=== PATIENT | male | born 1935 | race Caucasian/White ===

== ENCOUNTER 2017-04-03 13:11 | Emergency (ER) | payer MEDICARE ==
[~2017-04-03] VITALS: Ht 177.8 cm; Wt 89.0 kg
[~2017-04-03 13:11] MED LIST: AMOXICILLIN500 MG PO; ASPIRIN LOW DOS81 M2 PO; CENTRUM SILVER PO; CHILD ASA81 MG OR; CIPROFLOXACN500 MG PO; DARVOCET-N 100100 MG OR; DILANTIN100 MG OR; DILANTIN100 MG PO; LORTAB 5 OR; PHENOBARB64.8 MG OR; PHENOBARB64.8 MG PO; PHENYTOIN EX100 M1 PO; PREDNISONE10 MG PO; ROBITUSSIN AC10 ML PO; SPIRIVA IN; TESSALON PER100 MG PO; TRAMADOL HCL50 MG PO; ZITHROMAX250 MG PO
[2017-04-03] MEDS ORDERED: CIPROFLOXACIN250 MG PO (13:30)
[2017-04-03] MEDS ORDERED: TAMSULOSIN0.4 MG PO (13:30)
[2017-04-03 14:25] LABS: URINE BILIRUBIN - DIPSTICK NEGATIVE (NEGATIVE); URINE BLOOD DIPSTICK TRACE-INTACT (NEGATIVE); URINE CLARITY CLEAR; URINE COLOR YELLOW; URINE GLUCOSE - DIPSTICK NEGATIVE (NEGATIVE); URINE KETONE NEGATIVE (NEGATIVE); URINE LEUK ESTERASE NEGATIVE (NEGATIVE); URINE NITRITE - DIPSTICK NEGATIVE (Negative); URINE PROTEIN - DIPSTICK NEGATIVE (NEG-TRACE); URINE UROBILINOGEN - DIPSTICK 0.2 E.U./dL (0.2)
[2017-04-03] MEDS ORDERED: COLACE100 MG PO (14:31)
[2017-04-03 14:37] VITALS: BP 114/69
== END 2017-04-03 14:54 | disposition home or self-care (01) ==
LOC: ED 13:11
PROVIDERS: Emergency Medicine
PROC: 0T9B70Z Drainage of Bladder with Drainage Device, Via Natural or Artificial Opening (ICD-10-PCS; principal; 2017-04-03)
DX: R33.9 Retention of urine, unspecified (principal); K59.00 Constipation, unspecified; B02.9 Zoster without complications

== ENCOUNTER 2017-04-09 11:53 | Emergency (ER) | payer MEDICARE ==
[~2017-04-09] VITALS: Ht 177.8 cm; Wt 88.0 kg
[~2017-04-09 11:53] MED LIST changes: +CIPROFLOXACIN250 MG PO; +COLACE100 MG PO; +TAMSULOSIN0.4 MG PO
[2017-04-09 13:10] VITALS: BP 131/84
[2017-04-11] MEDS ORDERED: GABAPENTIN600 MG PO (18:32)
[2017-04-11] MEDS ORDERED: VALACYCLOVIR HCL1 GM PO (18:34)
[2017-04-11] MEDS ORDERED: PHENYTOIN EX100 MG PO ×2 (22:26)
== END 2017-04-09 13:10 | disposition home or self-care (01) ==
LOC: ED 11:53
DX: T83.84XA Pain due to genitourinary prosthetic devices, implants and grafts, initial encounter (principal); G40.909 Epilepsy, unspecified, not intractable, without status epilepticus; J44.9 Chronic obstructive pulmonary disease, unspecified; Y84.6 Urinary catheterization as the cause of abnormal reaction of the patient, or of later complication, without mention of misadventure at the time of the procedure

== ENCOUNTER → 2018-11-14 | Outpatient (REF) | payer MEDICARE ==
[~2018-11-14] MED LIST changes: +GABAPENTIN600 MG PO; +KEPPRA500 M2 PO; +PHENYTOIN EX100 MG PO; +VALACYCLOVIR HCL1 GM PO
[2018-11-14 13:28] LABS: URINE BILIRUBIN - DIPSTICK NEGATIVE (NEGATIVE); URINE BLOOD DIPSTICK TRACE-INTACT (NEGATIVE); URINE COLOR YELLOW; URINE GLUCOSE - DIPSTICK NEGATIVE (NEGATIVE); URINE KETONE NEGATIVE (NEGATIVE); URINE NITRITE - DIPSTICK NEGATIVE (Negative); URINE PROTEIN - DIPSTICK NEGATIVE (NEG-TRACE); URINE SPECIFIC GRAVITY 1.015; URINE UROBILINOGEN - DIPSTICK 0.2 E.U./dL (0.2)
[2018-11-14 13:30] LABS: URINE LEUK ESTERASE LARGE (NEGATIVE)
[2018-11-14 13:31] LABS: URINE BACTERIA MODERATE hpf; URINE EPITHELIAL CELLS FEW EPI/hpf (0-FEW); URINE RBC 0-2 RBC/hpf (0-5)
== END | disposition home or self-care (01) ==
LOC: LAB 11:03
PROVIDERS: ATTEND Internal Medicine
DX: R39.9 Unspecified symptoms and signs involving the genitourinary system (principal); B95.2 Enterococcus as the cause of diseases classified elsewhere

== ENCOUNTER 2019-08-21 15:40 | Observation (INO) | payer MEDICARE ==
[~2019-08-21] VITALS: Ht 175.3 cm; Wt 97.2 kg
--- NOTE | 2019-08-21 15:40 | NUR ---
PT TO ROOM VIA EMS
[2019-08-21 16:25] LABS: HEMATOCRIT 40.5 % (39.0-50.0); HEMOGLOBIN 12.6 g/dl (14.0-18.0); MEAN CELL VOLUME 96.2 fL CALC (80.0-100.0); MEAN CORPUSCULAR HGB 29.9 pG CALC (26.0-32.0); MEAN CORPUSCULAR HGB CONC 31.1 g/L CALC (32.0-36.0); NEUT# 4.98 thou/uL (1.82-7.42); RED BLOOD COUNT 4.21 mill/uL (4.70-6.10); RED CELL DISTRI WIDTH 14.2 % (11.5-15.5)
--- NOTE | 2019-08-21 16:40 | NUR ---
PT RESTING ON STRETCHER; NO S/S OF DISTRESS NOTED; VSS; O2 NC IN PLACE; PT DENIES ANY NEEDS AT THIS TIME; CALL LIGHT WITHIN REACH; WILL CONTINUE TO MONITOR
[2019-08-21] MEDS ORDERED: BUSPAR5 M1 PO (16:49)
[2019-08-21] MEDS ORDERED: ZITHROMAX Z-PA250 MG PO (16:49)
[2019-08-21] MEDS ORDERED: PHENYTOIN EX100 M1 PO (16:50)
[2019-08-21] MEDS ORDERED: TAMSULOSIN HCL0.4 MG PO (16:50)
[2019-08-21 17:00] LABS: ALBUMIN 4.4 g/dL (3.2-5.0); ALKALINE PHOSPHATASE 135 u/l (38-126); ANION GAP 15 (6-22 (CALC)); BUN 13 mg/dL (8-23); BUN/CREATININE RATIO 27 (12-20 (CALC)); CARBON DIOXIDE 25 mmol/l (22-30); CHLORIDE 102 mmol/l (95-108); CREATININE 0.5 mg/dL (0.7-1.3); GFR > 60 ML/MIN (>=60 (CALC)); GFR FOR AFR.AMER. > 60 ML/MIN (>=60 (CALC)); POTASSIUM 4.5 mmol/l (3.5-5.1); SGOT/AST 32 u/l (19-48); SODIUM 138 mmol/l (137-146)
[2019-08-21 17:02] LABS: BILIRUBIN, TOTAL 0.3 mg/dL (0.0-1.4); TOTAL PROTEIN 7.7 g/dL (6.3-8.2)
--- NOTE | 2019-08-21 17:30 | NUR ---
ASSSITED PT TO BSC, MODERATE BM NOTED; PT ASSISTED BACK TO BED; NO S/S OF DISTRESS NOTED; VSS; CALL LIGHT WITHIN REACH; WILL CONTINUE TO MONITOR
--- NOTE | 2019-08-21 18:30 | NUR ---
PT RESTING ON STRETCHER WITH EYES CLOSED; NO S/S OF DISTRESS NOTED; VSS; CALL LIGHT WITHIN REACH; WILL CONTINUE TO MONITOR
--- NOTE | 2019-08-21 19:01 | NUR ---
REPORT GIVEN TO HALEY CLIFFORD;
--- NOTE | 2019-08-21 20:01 | NUR ---
PT. VOIDING QS TITI URINE IN URINAL, NO C/O AT THIS TIME.
--- NOTE | 2019-08-21 20:30 | NUR ---
PT. TAKEN TO [place] FLOOR VIA STRETCHER, NO C/O.
[2019-08-21 20:45] VITALS: BP 136/79
--- NOTE | 2019-08-21 22:46 | NUR ---
PT MEDICATED ORDERS PROVIDE. PT WAS SLEEPING WHEN I ENTERED THE ROOM. LOCX3 LIGHTS TURNED DOWN AND TV OFF, PT REUTURNING BACK TO SLEEP. [facility].
[2019-08-22] VITALS (7 sets, daily range): BP systolic 100–131; BP diastolic 55–74
--- NOTE | 2019-08-22 00:38 | NUR ---
V/S ASSESSED, PT SLEEPING UPON ENTERING ROOM. NO S/O DISTRESS NOTED. CALL LIGHT W/IN REACH.
--- NOTE | 2019-08-22 03:41 | NUR ---
PT SLEEPING AT THIS TIME. AIDE JUST OBTAINED V/S. NO S/O DISTRESS NOTED.
--- NOTE | 2019-08-22 05:45 | NUR ---
ASSISTED RESP OBTAINING EKG. PT MILDLY COMBATIVE. BED ALARM LEFT ON.
--- NOTE | 2019-08-22 08:20 | NUR ---
PT RESTING IN BED, NO SIGNS OF DISTRESS NOTED, RESP EVEN AND UNLABORED. NC ON 2L. PT ALERT AND ORIENTED, VITAL OBTAINED. DISCUSSED POC, PT VERBALIZED UNDERSTANDING. ASSESSMENT COMPLETED, CALL LIGHT IN REACH,CONTINUE TO MONITOR.
--- NOTE | 2019-08-22 13:00 | NUR ---
PT RECEIVING IV ZITHRO, VOICES NO NEEDS OR COMPLAINTS AT THIS TIME, CALL LIGHT IN REACH,CONTINUE TO MONITOR.
--- NOTE | 2019-08-22 15:00 | NUR ---
PT RESTING IN BED, NO SIGNS OF DISTRESS NOTED, RESP EVEN AND UNLABORED. PT MEDICATED PER MAR, VOICES NO NEEDS OR COMPLAINTS AT THIS TIME. CALL LIGHT IN REACH,CONTINUE TO MONITOR.
--- NOTE | 2019-08-22 19:00 | NUR ---
PT GIVEN DINNER TRAY, VOICES NO NEEDS OR COMPLAINTS AT THIS TIME. CALL LIGHT IN REACH,CONTINUE TO MONITOR.
--- NOTE | 2019-08-22 20:00 | NUR ---
ASSESSMENT COMPLETED. IV SITE PATENT AND SL, FLUSHES WELL. SCHED MEDS GIVEN. DENIES NEEDS/PAIN. SIDE RAILS PADDED FOR SEIZURE PRECAUTIONS. PT. REPORTS BM EARLIER TODAY. UPDATED ON POC. PO FLUIDS OFFERED. ENCOURAGED TO CALL FOR ANY NEEDS. CALL LIGHT IS IN REACH. WILL CONTINUE TO MONITOR.
--- NOTE | 2019-08-22 21:45 | NUR ---
RESTING IN BED WITH EYES CLOSED AND SNORING. RESP. EVEN AND UNLABORED. CALL LIGHT IS IN REACH.
--- NOTE | 2019-08-23 00:15 | NUR ---
PT. RESTING IN BED WITH NO DISTRESS NOTED; DENIES NEEDS/PAIN. FRESH WATER PROVIDED. URINAL EMPTIED. CALL LIGHT IS IN REACH.
--- NOTE | 2019-08-23 02:30 | NUR ---
PT. RESTING IN BED WITH EYES CLOSED; RESP. EVEN AND UNLABORED. CALL LIGHT IS IN REACH.
[2019-08-23 03:50] VITALS: BP 120/71
[2019-08-23 05:16] LABS: HEMATOCRIT 38.2 % (39.0-50.0); HEMOGLOBIN 11.9 g/dl (14.0-18.0); IMMATURE GRANULOCYTES 0.6 % (0.0-5.0); MEAN CELL VOLUME 96.5 fL CALC (80.0-100.0); MEAN CORPUSCULAR HGB 30.1 pG CALC (26.0-32.0); MEAN CORPUSCULAR HGB CONC 31.2 g/L CALC (32.0-36.0); NEUT# 5.15 thou/uL (1.82-7.42); RED BLOOD COUNT 3.96 mill/uL (4.70-6.10); RED CELL DISTRI WIDTH 13.9 % (11.5-15.5)
[2019-08-23 05:28] LABS: ANION GAP 13 (6-22 (CALC)); BUN 18 mg/dL (8-23); BUN/CREATININE RATIO 31 (12-20 (CALC)); CARBON DIOXIDE 29 mmol/l (22-30); CHLORIDE 101 mmol/l (95-108); CREATININE 0.6 mg/dL (0.7-1.3); GFR > 60 ML/MIN (>=60 (CALC)); GFR FOR AFR.AMER. > 60 ML/MIN (>=60 (CALC)); POTASSIUM 4.6 mmol/l (3.5-5.1); SODIUM 138 mmol/l (137-146)
--- NOTE | 2019-08-23 05:45 | NUR ---
PT. RESTING IN BED WITH NO DISTRESS NOTED; DENIES NEEDS/PAIN. ENCOURAGED TO CALL FOR ANY NEEDS. CALL LIGHT IS IN REACH. FRESH WATER GIVEN.
[2019-08-23 07:25] VITALS: BP 136/69
--- NOTE | 2019-08-23 07:25 | NUR ---
PT RESTING IN BED. A&O X3. NO SIGNS OF DISTRESS. PT STATES THAT HE IS DOING A LOT BETTER TODAY. DISCUSSED POC. ASSESSMENT COMPLETED AT THIS TIME. CALL LIGHT IN REACH. CONTINUE TO MONITOR.
[2019-08-23 10:59] VITALS: BP 123/68
--- NOTE | 2019-08-23 12:45 | NUR ---
PT RESTING IN RECLINER. NO NEEDS AT THIS TIME. CONTINUE TO MONITOR.
--- NOTE | 2019-08-23 13:02 | NUR ---
02 HUMIDIFIED; PT NOW RESTING IN BED. IV ZITHRO COMPLETED. PT VOICES NO NEEDS OR COMPLAINTS AT THIS TIME. CALL LIGHT IN REACH,CONTINUE TO MONITOR.
[2019-08-23] MEDS ORDERED: TAM75CAP PO (13:17)
[2019-08-23] MEDS ORDERED: ZITHROMAX Z-PA250 MG PO (13:18)
--- NOTE | 2019-08-23 15:30 | NUR ---
Discharge instructions given. Patient verbalizes understanding of same. Discharged in stable condition via Wheelchair to [facility] with staff. All belongings sent with pt.
--- NOTE | 2019-08-23 18:38 | NUR ---
2 PHENOBARBITAL 64.8MG PILLS REMOVED FROM [facility], NURSE FROM [facility] ARRIVED AND PICKED UP MEDS FROM [facility]. WHEN PHARMACY RETURNS IN AM, MEDS TO BE BROUGHT TO FLOOR AND FACILITY CALLED TO BE PICKED UP.
== END 2019-08-23 15:28 ==
LOC: ED 15:40 → ED-I 17:09 → ED 17:47 → ED-I 17:48 → MS2 18:34
PROVIDERS: Nurse Practitioner Family; ADMIT Internal Medicine; ATTEND Internal Medicine
DX: J10.1 Influenza due to other identified influenza virus with other respiratory manifestations (principal); J43.9 Emphysema, unspecified; J96.22 Acute and chronic respiratory failure with hypercapnia; J96.21 Acute and chronic respiratory failure with hypoxia; G62.9 Polyneuropathy, unspecified; G40.909 Epilepsy, unspecified, not intractable, without status epilepticus; F41.9 Anxiety disorder, unspecified; Z87.891 Personal history of nicotine dependence; Z99.81 Dependence on supplemental oxygen; R53.1 Weakness
CPT/HCPCS: G0378; G9019

== ENCOUNTER 2020-03-01 11:10 | Emergency (ER) | payer MEDICARE ==
[~2020-03-01 11:10] MED LIST changes: +BUSPAR5 M1 PO; +TAM75CAP PO; +TAMSULOSIN HCL0.4 MG PO; +ZITHROMAX Z-PA250 MG PO
[2020-03-01 11:37] LABS: HEMATOCRIT 38.9 % (39.0-50.0); HEMOGLOBIN 12.6 g/dl (14.0-18.0); IMMATURE GRANULOCYTES 0.3 % (0.0-5.0); MEAN CELL VOLUME 93.7 fL CALC (80.0-100.0); MEAN CORPUSCULAR HGB 30.4 pG CALC (26.0-32.0); MEAN CORPUSCULAR HGB CONC 32.4 g/dL CAL (32.0-36.0); NEUT# 7.24 thou/uL (1.82-7.42); RED BLOOD COUNT 4.15 mill/uL (4.70-6.10); RED CELL DISTRI WIDTH 13.9 % (11.5-15.5)
[2020-03-01 11:51] LABS: ALBUMIN 4.7 g/dL (3.2-5.0); ALKALINE PHOSPHATASE 124 u/l (38-126); ANION GAP 14 (6-22 (CALC)); BILIRUBIN, TOTAL 0.4 mg/dL (0.0-1.4); BUN 10 mg/dL (8-23); BUN/CREATININE RATIO 15 (12-20 (CALC)); CARBON DIOXIDE 25 mmol/l (22-30); CHLORIDE 99 mmol/l (95-108); CREATININE 0.6 mg/dL (0.7-1.3); GFR > 60 ML/MIN (>=60 (CALC)); GFR FOR AFR.AMER. > 60 ML/MIN (>=60 (CALC)); LIPASE 85 u/l (23-300); MAGNESIUM 2.1 mg/dL (1.6-2.3); POTASSIUM 4.2 mmol/l (3.5-5.1); SGOT/AST 29 u/l (19-48); SODIUM 134 mmol/l (137-146); TOTAL PROTEIN 8.2 g/dL (6.3-8.2)
[2020-03-01 11:57] LABS: PROTHROMBIN TIME 10.2 SECONDS (9.0-12.5)
[2020-03-01 12:21] LABS: TSH, 3RD GENERATION 1.89 uIU/mL (0.47 - 4.68)
[2020-03-01 13:07] LABS: URINE BILIRUBIN - DIPSTICK NEGATIVE (NEGATIVE); URINE BLOOD DIPSTICK NEGATIVE (NEGATIVE); URINE COLOR YELLOW; URINE GLUCOSE - DIPSTICK NEGATIVE (NEGATIVE); URINE KETONE NEGATIVE (NEGATIVE); URINE LEUK ESTERASE NEGATIVE (NEGATIVE); URINE NITRITE - DIPSTICK NEGATIVE (Negative); URINE PH 7.5 (4.5-8.0); URINE PROTEIN - DIPSTICK NEGATIVE (NEG-TRACE); URINE UROBILINOGEN - DIPSTICK 0.2 E.U./dL (0.2)
[2020-03-01 14:45] VITALS: BP 156/72
== END 2020-03-01 15:00 | disposition home or self-care (01) ==
LOC: ED 11:10
PROVIDERS: Family Medicine
DX: R53.1 Weakness (principal); R51 Headache; J44.9 Chronic obstructive pulmonary disease, unspecified; Z11.59 Encounter for screening for other viral diseases

== ENCOUNTER 2020-03-09 11:45 | Emergency (ER) | payer MEDICARE ==
[~2020-03-09] VITALS: Ht 172.7 cm; Wt 65.0 kg
[2020-03-09 11:50] VITALS: BP 122/73
[2020-03-09] MEDS ORDERED: PHENOBARB20 MG/5 ML PO (12:15)
[2020-03-09] MEDS ORDERED: ALBUTEROL108 MCG/AC IN (12:16)
== END 2020-03-09 12:20 | disposition left against medical advice (07) ==
LOC: ED 11:45 → LWOBS 12:19
DX: Z53.21 Procedure and treatment not carried out due to patient leaving prior to being seen by health care provider (principal)

== ENCOUNTER 2022-01-17 22:26 | Emergency (ER) | payer MEDICARE ==
[~2022-01-17] VITALS: Ht 172.7 cm; Wt 100.0 kg
[~2022-01-17 22:26] MED LIST changes: +ALBUTEROL108 MCG/AC IN; +PHENOBARB20 MG/5 ML PO
[2022-01-17 22:46] VITALS: BP 124/79
[2022-01-17 23:09] LABS: HEMATOCRIT 38.6 % (39.0-50.0); HEMOGLOBIN 12.4 g/dl (14.0-18.0); IMMATURE GRANULOCYTES 0.7 % (0.0-5.0); MEAN CORPUSCULAR HGB 31.2 pG CALC (26.0-32.0); MEAN CORPUSCULAR HGB CONC 32.1 g/dL CAL (32.0-36.0); NEUT# 10.78 thou/uL (1.82-7.42); RED BLOOD COUNT 3.98 mill/uL (4.70-6.10); RED CELL DISTRI WIDTH 13.9 % (11.5-15.5)
[2022-01-17 23:11] VITALS: BP 142/78
[2022-01-17 23:15] VITALS: BP 104/74
[2022-01-17] MEDS ORDERED: ASPIRIN81 MG PO (23:18)
[2022-01-17] MEDS ORDERED: FUROSEMIDE20 MG PO (23:19)
[2022-01-17] MEDS ORDERED: METOLAZONE2.5 MG PO (23:19)
[2022-01-17] MEDS ORDERED: PHENYTOIN EX100 M1 PO (23:20)
[2022-01-17] MEDS ORDERED: SPIRIVA RE2.5 MCG/AC (23:21)
[2022-01-17] MEDS ORDERED: CRESTOR10 MG PO (23:21)
[2022-01-17 23:24] LABS: ACT PARTIAL THROMBO TIME 23.8 SECONDS (20.0-32.5); ALBUMIN 4.4 g/dL (3.2-5.0); ALKALINE PHOSPHATASE 113 u/l (38-126); ANION GAP 12 (6-22 (CALC)); BUN 13 mg/dL (8-23); BUN/CREATININE RATIO 22 (12-20 (CALC)); CARBON DIOXIDE 28 mmol/l (22-30); CHLORIDE 97 mmol/l (95-108); CREATININE 0.6 mg/dL (0.7-1.3); GFR > 60 ML/MIN (>=60 (CALC)); GFR FOR AFR.AMER. > 60 ML/MIN (>=60 (CALC)); INTERNATIONAL NORMALIZED RATIO 0.9 RATIO (0.7-1.3); LIPASE 163 u/l (23-300); POTASSIUM 3.5 mmol/l (3.5-5.1); PROTHROMBIN TIME 9.9 SECONDS (9.0-12.5); SGOT/AST 36 u/l (19-48); SODIUM 134 mmol/l (137-146); TOTAL PROTEIN 7.7 g/dL (6.3-8.2)
[2022-01-17 23:26] LABS: BILIRUBIN, TOTAL 0.2 mg/dL (0.0-1.4)
[2022-01-17 23:30] VITALS: BP 118/76
[2022-01-18 01:13] VITALS: BP 118/76
== END 2022-01-18 01:07 | disposition short-term general hospital (02) ==
LOC: ED 22:26
PROC: 2W3CX1Z Immobilization of Right Lower Arm using Splint (ICD-10-PCS; principal; 2022-01-17)
DX: S52.591A Other fractures of lower end of right radius, initial encounter for closed fracture (principal); S52.611A Displaced fracture of right ulna styloid process, initial encounter for closed fracture; S52.601A Unspecified fracture of lower end of right ulna, initial encounter for closed fracture; S61.511A Laceration without foreign body of right wrist, initial encounter; J44.9 Chronic obstructive pulmonary disease, unspecified; W18.30XA Fall on same level, unspecified, initial encounter

== ENCOUNTER 2022-04-29 12:08 | Emergency (ER) | payer MEDICARE ==
[~2022-04-29] VITALS: Ht 172.7 cm; Wt 94.1 kg
[~2022-04-29 12:08] MED LIST changes: +ASPIRIN81 MG PO; +CRESTOR10 MG PO; +FUROSEMIDE20 MG PO; +METOLAZONE2.5 MG PO; +SPIRIVA RE2.5 MCG/AC
[2022-04-29 13:24] VITALS: BP 120/85
== END 2022-04-29 13:55 | disposition home or self-care (01) ==
LOC: ED 12:08
PROC: 0HQ1XZZ Repair Face Skin, External Approach (ICD-10-PCS; principal; 2022-04-29)
DX: S01.111A Laceration without foreign body of right eyelid and periocular area, initial encounter (principal); J44.9 Chronic obstructive pulmonary disease, unspecified; W01.0XXA Fall on same level from slipping, tripping and stumbling without subsequent striking against object, initial encounter; Y92.099 Unspecified place in other non-institutional residence as the place of occurrence of the external cause

== ENCOUNTER 2022-09-27 13:58 | Inpatient (IN) | payer MEDICARE ==
[~2022-09-27] VITALS: Ht 172.7 cm; Wt 90.0 kg
[2022-09-27 15:02] LABS: BASO% 0.2 % (0-3); EOS% 0.4 % (0-8); HEMATOCRIT 38.2 % (39.0-50.0); HEMOGLOBIN 12.7 g/dl (14.0-18.0); IMMATURE GRANULOCYTES 0.6 % (0.0-5.0); MEAN CORPUSCULAR HGB 31.6 pG CALC (26.0-32.0); MEAN CORPUSCULAR HGB CONC 33.2 g/dL CAL (32.0-36.0); MONO% 17.9 % (2-13); NEUT# 3.49 thou/uL (1.82-7.42); NEUT% 64.9 % (42-76); RED BLOOD COUNT 4.02 mill/uL (4.70-6.10); RED CELL DISTRI WIDTH 13.7 % (11.5-15.5)
[2022-09-27 15:21] LABS: ALBUMIN 4.3 g/dL (3.2-5.0); ALKALINE PHOSPHATASE 110 u/l (38-126); ANION GAP 14 (6-22 (CALC)); BILIRUBIN, TOTAL 0.2 mg/dL (0.0-1.4); BUN 28 mg/dL (8-23); BUN/CREATININE RATIO 41 (12-20 (CALC)); CARBON DIOXIDE 26 mmol/l (22-30); CHLORIDE 96 mmol/l (95-108); CREATININE 0.7 mg/dL (0.7-1.3); GFR FOR AFR.AMER. > 60 ML/MIN (>=60 (CALC)); GFR OTHER RACES > 60 ML/MIN (>=60 (CALC)); POTASSIUM 3.5 mmol/l (3.5-5.1); SGOT/AST 40 u/l (19-48); SODIUM 133 mmol/l (137-146); TOTAL PROTEIN 7.3 g/dL (6.3-8.2)
[2022-09-27 15:44] VITALS: BP 141/94
[2022-09-27] MEDS ORDERED: POT CHLORIDE10 ME5 PO (17:54)
[2022-09-27] MEDS ORDERED: TRELEGY ELLIPTA1 AER PO (17:56)
[2022-09-27] MEDS ORDERED: DOCUSATE MT (18:00)
[2022-09-27] MEDS ORDERED: METHOCARBAMOL750 MG PO (18:02)
[2022-09-27] MEDS ORDERED: PEG335017 GM/SCOO PO (18:04)
[2022-09-27 18:50] VITALS: BP 121/65
[2022-09-28] VITALS (7 sets, daily range): BP systolic 95–132; BP diastolic 61–74
[2022-09-28 06:10] LABS: BASO% 0.2 % (0-3); HEMATOCRIT 35.9 % (39.0-50.0); IMMATURE GRANULOCYTES 0.5 % (0.0-5.0); LYMPH% 20.1 % (15-41); MEAN CELL VOLUME 95.7 fL CALC (80.0-100.0); MEAN CORPUSCULAR HGB CONC 33.4 g/dL CAL (32.0-36.0); MONO% 16.7 % (2-13); NEUT# 2.76 thou/uL (1.82-7.42); NEUT% 62.5 % (42-76); RED BLOOD COUNT 3.75 mill/uL (4.70-6.10); RED CELL DISTRI WIDTH 13.7 % (11.5-15.5)
[2022-09-28 06:28] LABS: ALBUMIN 3.8 g/dL (3.2-5.0); ALKALINE PHOSPHATASE 82 u/l (38-126); ANION GAP 12 (6-22 (CALC)); BUN 19 mg/dL (8-23); BUN/CREATININE RATIO 32 (12-20 (CALC)); CARBON DIOXIDE 27 mmol/l (22-30); CHLORIDE 98 mmol/l (95-108); CREATININE 0.6 mg/dL (0.7-1.3); GFR FOR AFR.AMER. > 60 ML/MIN (>=60 (CALC)); GFR OTHER RACES > 60 ML/MIN (>=60 (CALC)); POTASSIUM 4.1 mmol/l (3.5-5.1); SGOT/AST 36 u/l (19-48); SODIUM 132 mmol/l (137-146); TOTAL PROTEIN 6.7 g/dL (6.3-8.2)
[2022-09-28 07:03] LABS: URINE BILIRUBIN - DIPSTICK NEGATIVE (NEGATIVE); URINE BLOOD DIPSTICK NEGATIVE (NEGATIVE); URINE COLOR YELLOW; URINE GLUCOSE - DIPSTICK NEGATIVE (NEGATIVE); URINE KETONE TRACE mg/dL (NEGATIVE); URINE LEUK ESTERASE NEGATIVE (NEGATIVE); URINE NITRITE - DIPSTICK NEGATIVE (Negative); URINE PH 5.5 (4.5-8.0); URINE PROTEIN - DIPSTICK NEGATIVE (NEG-TRACE); URINE UROBILINOGEN - DIPSTICK 0.2 E.U./dL (0.2)
[2022-09-29 04:28] VITALS: BP 140/77
[2022-09-29 07:10] VITALS: BP 132/72
[2022-09-29 11:14] VITALS: BP 118/68
[2022-09-29] MEDS ORDERED: PREDNISONE50 MG PO (12:50)
== END 2022-09-29 14:13 | DRG 190 ==
LOC: MS2 13:58
PROVIDERS: Nurse Practitioner Family; ADMIT Internal Medicine; ATTEND Internal Medicine
DX: J43.9 Emphysema, unspecified (principal); J96.21 Acute and chronic respiratory failure with hypoxia; J96.22 Acute and chronic respiratory failure with hypercapnia; E11.9 Type 2 diabetes mellitus without complications; I50.9 Heart failure, unspecified; G40.909 Epilepsy, unspecified, not intractable, without status epilepticus; Z87.891 Personal history of nicotine dependence

== ENCOUNTER 2022-10-17 11:24 | Observation (INO) | payer MEDICARE ==
[2022-10-17] VITALS (12 sets, daily range): BP systolic 98–145; BP diastolic 64–96
[~2022-10-17] VITALS: Ht 172.7 cm; Wt 91.0 kg
[~2022-10-17 11:24] MED LIST changes: +DOCUSATE MT; +METHOCARBAMOL750 MG PO; +PEG335017 GM/SCOO PO; +POT CHLORIDE10 ME5 PO; +PREDNISONE50 MG PO; +TRELEGY ELLIPTA1 AER PO
[2022-10-17] MEDS ORDERED: PREDNISONE20 MG PO (11:47)
[2022-10-17] MEDS ORDERED: LEVOFLOXACIN750 MG PO (11:47)
[2022-10-17] MEDS ORDERED: PREDNISONE10 MG PO (11:49)
[2022-10-17 12:08] LABS: BASO% 0.2 % (0-3); EOS% 0.6 % (0-8); HEMOGLOBIN 12.8 g/dl (14.0-18.0); IMMATURE GRANULOCYTES 0.4 % (0.0-5.0); LYMPH% 8.7 % (15-41); MEAN CELL VOLUME 94.7 fL CALC (80.0-100.0); MEAN CORPUSCULAR HGB 31.1 pG CALC (26.0-32.0); MEAN CORPUSCULAR HGB CONC 32.8 g/dL CAL (32.0-36.0); MONO% 8.5 % (2-13); NEUT# 8.34 thou/uL (1.82-7.42); NEUT% 81.6 % (42-76); RED BLOOD COUNT 4.12 mill/uL (4.70-6.10); RED CELL DISTRI WIDTH 13.8 % (11.5-15.5)
[2022-10-17 12:25] LABS: ALBUMIN 3.3 g/dL (3.2-5.0); ALKALINE PHOSPHATASE 98 u/l (38-126); BUN 22 mg/dL (8-23); BUN/CREATININE RATIO 29 (12-20 (CALC)); CHLORIDE 90 mmol/l (95-108); CREATININE 0.7 mg/dL (0.7-1.3); GFR FOR AFR.AMER. > 60 ML/MIN (>=60 (CALC)); GFR OTHER RACES > 60 ML/MIN (>=60 (CALC)); POTASSIUM 3.3 mmol/l (3.5-5.1); SODIUM 128 mmol/l (137-146); TOTAL PROTEIN 6.2 g/dL (6.3-8.2)
[2022-10-17 12:36] LABS: ANION GAP 8 (6-22 (CALC)); BILIRUBIN, TOTAL 0.3 mg/dL (0.0-1.4); CARBON DIOXIDE 33 mmol/l (22-30); SGOT/AST 70 u/l (19-48)
[2022-10-17] MEDS ORDERED: PHENOBARB64.8 MG PO (16:38)
[2022-10-18 00:21] VITALS: BP 102/74
[2022-10-18 03:30] VITALS: BP 137/72
[2022-10-18 05:42] LABS: URINE BILIRUBIN - DIPSTICK NEGATIVE (NEGATIVE); URINE BLOOD DIPSTICK NEGATIVE (NEGATIVE); URINE COLOR YELLOW; URINE GLUCOSE - DIPSTICK 100 mg/dL (NEGATIVE); URINE KETONE NEGATIVE (NEGATIVE); URINE LEUK ESTERASE NEGATIVE (NEGATIVE); URINE NITRITE - DIPSTICK NEGATIVE (Negative); URINE PH 6.5 (4.5-8.0); URINE PROTEIN - DIPSTICK NEGATIVE (NEG-TRACE); URINE UROBILINOGEN - DIPSTICK 0.2 E.U./dL (0.2)
[2022-10-18 05:54] LABS: HEMATOCRIT 36.6 % (39.0-50.0); HEMOGLOBIN 11.9 g/dl (14.0-18.0); MEAN CELL VOLUME 94.8 fL CALC (80.0-100.0); MEAN CORPUSCULAR HGB 30.8 pG CALC (26.0-32.0); MEAN CORPUSCULAR HGB CONC 32.5 g/dL CAL (32.0-36.0); RED BLOOD COUNT 3.86 mill/uL (4.70-6.10); RED CELL DISTRI WIDTH 13.6 % (11.5-15.5)
[2022-10-18 05:58] LABS: ALBUMIN 3.2 g/dL (3.2-5.0); ALKALINE PHOSPHATASE 97 u/l (38-126); ANION GAP 5 (6-22 (CALC)); BILIRUBIN, TOTAL 0.3 mg/dL (0.0-1.4); BUN 14 mg/dL (8-23); BUN/CREATININE RATIO 22 (12-20 (CALC)); CARBON DIOXIDE 35 mmol/l (22-30); CHLORIDE 94 mmol/l (95-108); CREATININE 0.7 mg/dL (0.7-1.3); GFR FOR AFR.AMER. > 60 ML/MIN (>=60 (CALC)); GFR OTHER RACES > 60 ML/MIN (>=60 (CALC)); POTASSIUM 3.4 mmol/l (3.5-5.1); SGOT/AST 58 u/l (19-48); SODIUM 130 mmol/l (137-146); TOTAL PROTEIN 5.9 g/dL (6.3-8.2)
[2022-10-18 06:44] VITALS: BP 105/70
[2022-10-18 10:28] VITALS: BP 113/73
== END 2022-10-18 13:42 ==
LOC: ED 11:24 → ED-I 14:06 → ED 14:25 → MS2 14:26
PROVIDERS: Family Medicine; ADMIT Internal Medicine; ATTEND Internal Medicine
DX: E87.1 Hypo-osmolality and hyponatremia (principal); E87.6 Hypokalemia; E87.8 Other disorders of electrolyte and fluid balance, not elsewhere classified; J44.1 Chronic obstructive pulmonary disease with (acute) exacerbation; J96.11 Chronic respiratory failure with hypoxia; I11.0 Hypertensive heart disease with heart failure; I50.9 Heart failure, unspecified; E11.9 Type 2 diabetes mellitus without complications; N40.0 Benign prostatic hyperplasia without lower urinary tract symptoms; G40.909 Epilepsy, unspecified, not intractable, without status epilepticus; Z87.891 Personal history of nicotine dependence; Z99.81 Dependence on supplemental oxygen; Z20.822 Contact with and (suspected) exposure to COVID-19
CPT/HCPCS: J1650

== ENCOUNTER 2023-01-15 12:21 | Emergency (ER) | payer MEDICARE ==
[~2023-01-15] VITALS: Ht 172.7 cm; Wt 93.6 kg
[~2023-01-15 12:21] MED LIST changes: +LEVOFLOXACIN750 MG PO; +PREDNISONE20 MG PO
[2023-01-15 12:29] VITALS: BP 139/77
[2023-01-15 14:13] VITALS: BP 139/77
== END 2023-01-15 14:41 ==
LOC: ED 12:21
DX: Z04.3 Encounter for examination and observation following other accident (principal); J44.9 Chronic obstructive pulmonary disease, unspecified

== ENCOUNTER 2024-10-19 15:52 | Emergency (ER) | payer OTHER, MEDICARE ==
[~2024-10-19] VITALS: Ht 172.7 cm; Wt 93.1 kg
[2024-10-19 16:00] VITALS: BP 146/91
[2024-10-19] MEDS ORDERED: HYDROcodone/Acetaminophen 1 COMBO TAB PO ONE (16:25)
[2024-10-19] MEDS ORDERED: CEPHALEXIN MONOHYDRATE 500 MG/CAP PO ONE (16:25)
[2024-10-19 16:30] VITALS: BP 142/91
[2024-10-19] MEDS ORDERED: KEFLEX500 MG PO (16:38)
[2024-10-19] MEDS ORDERED: TYLENOL # 31 TA1 PO (16:38)
[2024-10-19 17:01] VITALS: BP 146/84
[2024-10-19 17:31] VITALS: BP 141/88
== END 2024-10-19 17:38 | DRG 563 ==
LOC: ED 15:52
DX: S86.911A Strain of unspecified muscle(s) and tendon(s) at lower leg level, right leg, initial encounter (principal); L03.115 Cellulitis of right lower limb; S81.811A Laceration without foreign body, right lower leg, initial encounter; J44.9 Chronic obstructive pulmonary disease, unspecified; W01.0XXA Fall on same level from slipping, tripping and stumbling without subsequent striking against object, initial encounter; Y92.099 Unspecified place in other non-institutional residence as the place of occurrence of the external cause